=== PATIENT | male | born 1960 | race Caucasian/White ===

== ENCOUNTER 2017-01-10 14:45 | Emergency (ER) | payer OTHER ==
[2017-01-10] MEDS ORDERED: ASPIRIN CHEWTAB 81 MG TABLET ONE (15:31)
[2017-01-10 15:37] LABS: ABSOLUTE NEUTROPHIL COUNT 4.7 K/mm3 (1.8-7.7); BASO % 0.5 % (0.2-1.0); EOS # 0.2 (0.0-0.5); EOS % 2.6 % (0.9-2.9); HEMATOCRIT 43.1 % (32.0-52.0); HEMOGLOBIN 14.2 gm/l (14.0-18.0); IMM NEUT% 0.2 % (0-1); LYMPH # 2.5 (1.0-4.8); LYMPH % 30.4 % (15-45); MEAN CELL VOLUME 97.3 fl (80.0-94.0); MEAN CORPUSCULAR HEMOGLOBIN 32.1 pg (27.0-31.0); MEAN CORPUSCULAR HGB CONC 32.9 g/dl (33.0-37.0); MONO # 0.7 (0.0-0.8); MONO % 8.8 % (4-12); NEUT % 57.5 % (43-75); PLATELET COUNT 400 K/mm3 (130-400); RED CELL DISTRIBUTION WIDTH 13.3 % (11.5-14.5)
[2017-01-10 16:02] LABS: ALB/GLOB RATIO 1.4 (>1.0); ALBUMIN 4.2 gm/dL (3.5-5.7); CALCIUM 9.4 mg/dL (8.6-10.3); MAGNESIUM 1.9 mg/dL (1.9-2.7)
[2017-01-10 16:04] LABS: TROPONIN I < 0.01 ng/ml (0.0-0.06)
--- NOTE | 2017-01-10 16:06 | RAD ---
CHEST - 2 VIEWS COMPARISON: None. HISTORY: Chest pain FINDINGS: Views: Frontal and lateral chest Lungs: Normal Heart and vessels: Normal Trachea and bronchi: Normal Mediastinum and dahiana: Normal Costophrenic sulci: Normal Chest wall and bones: Normal. Upper abdomen: Normal. IMPRESSION: Negative 2 view chest.
[2017-01-10 16:08] LABS: CKMB ISOENZYME 1.4 ng/ml (0.6-6.3)
== END 2017-01-10 18:15 | disposition home or self-care (01) ==
LOC: ED 14:45
DX: R07.9 Chest pain, unspecified (principal); I10 Essential (primary) hypertension; F17.210 Nicotine dependence, cigarettes, uncomplicated
CPT/HCPCS: 83690; 85025; 82550; 82553; 80053; 83735; 84484; 71020; 99284 ×2; 93005; A9270